=== PATIENT | female | born 1955 | race Hispanic/Latino ===

== ENCOUNTER → 2024-07-12 | Outpatient (CLI) | payer OTHER, MEDICARE ==
[2024-07-12 13:39] LABS: BASOPHILS # (AUTO) 0.06 K/uL (0.00-0.20); BASOPHILS % (AUTO) 0.9 % (0.0-5.0); EOSINOPHILS # (AUTO) 0.11 K/uL (0.00-0.70); EOSINOPHILS % (AUTO) 1.6 % (0.0-8.0); HEMATOCRIT 37.4 % (36-48); IMMATURE GRANULOCYTE ABSOLUTE 0.01 K/uL (0-1); LYMPHOCYTES # (AUTO) 2.9 K/uL (1.0-4.8); MEAN CORPUSCULAR HEMOGLOBIN 31.2 pg (27.0-33.0); MEAN CORPUSCULAR HGB CONC 34.5 g/dL (32.0-36.0); MEAN CORPUSCULAR VOLUME 90.3 fL (79-99); MONOCYTES # (AUTO) 0.7 K/uL (0.1-1.0); MONOCYTES % (AUTO) 10.5 % (3.0-13.0); NEUTROPHILS % (AUTO) 43.9 % (40.0-77.0); PLATELET COUNT (AUTO) 280 K/uL (130-400); RED BLOOD CELL COUNT(AUTO) 4.14 MIL/uL (4.00-5.50); RED CELL DISTRIBUTION WIDTH 14.4 % (11.0-15.5); WHITE BLOOD COUNT (AUTO) 6.8 K/uL (4.8-10.8)
[2024-07-12 13:52] LABS: INR 0.99 (0.85-1.15); PROTHROMBIN TIME 10.7 SEC (9.6-11.6)
[2024-07-12 13:54] LABS: ALBUMIN 3.9 g/dL (3.5-5.0); BILIRUBIN,TOTAL 0.7 mg/dL (0.2-1.0); CREATININE 0.7 mg/dL (0.5-1.0); POTASSIUM 3.3 mmol/L (3.5-5.1); TOTAL PROTEIN, SERUM 7.2 g/dL (6.0-8.3)
== END | disposition home or self-care (01) ==
LOC: LAB 13:17
PROVIDERS: ATTEND Internal Medicine Gastroenterology
DX: R94.5 Abnormal results of liver function studies (principal); R93.2 Abnormal findings on diagnostic imaging of liver and biliary tract; Z79.899 Other long term (current) drug therapy
CPT/HCPCS: 36415; 80053; 82977; 85025; 85610

== ENCOUNTER 2024-07-18 06:55 | Day surgery (SDC) | payer OTHER, MEDICARE ==
[2024-07-18] VITALS (11 sets, daily range): BP systolic 117–153; BP diastolic 57–77; PULSE 52–73; RESP 12–16; TEMP 96.6–97.4
[~2024-07-18] VITALS: Ht 152.4 cm; Wt 60.3 kg
[2024-07-18] MEDS ORDERED: OMEP40CA21 PO (09:20)
[2024-07-18] MEDS ORDERED: MONT-39 PO (09:20)
[2024-07-18] MEDS ORDERED: ALEN70TA80 PO (09:20)
[2024-07-18] MEDS ORDERED: CETI-89 PO (09:20)
[2024-07-18] MEDS ORDERED: FLUT1AER IH (09:20)
[2024-07-18] MEDS ORDERED: ROSU5TAB43 PO (09:20)
[2024-07-18] MEDS: 0.9%NACL 1000ML 1,000 ML IV ONE (09:28)
[2024-07-18] MEDS ORDERED: proPOFol 10 MG/ML 20ML VIAL IV ONE ×2 (10:17)
[2024-07-18 11:41] LABS: ALBUMIN 3.7 g/dL (3.5-5.0); BILIRUBIN,DIRECT 0.2 mg/dL (0.0-0.3); BILIRUBIN,TOTAL 0.6 mg/dL (0.2-1.0); TOTAL PROTEIN, SERUM 6.8 g/dL (6.0-8.3)
== END 2024-07-18 12:00 | disposition home or self-care (01) ==
LOC: ENDO 06:55 → DAH 06:55 → ENDO 12:00
PROVIDERS: ATTEND Internal Medicine Gastroenterology
DX: R93.2 Abnormal findings on diagnostic imaging of liver and biliary tract (principal); R94.5 Abnormal results of liver function studies; R93.5 Abnormal findings on diagnostic imaging of other abdominal regions, including retroperitoneum; K57.10 Diverticulosis of small intestine without perforation or abscess without bleeding; R74.8 Abnormal levels of other serum enzymes; K83.8 Other specified diseases of biliary tract; K21.9 Gastro-esophageal reflux disease without esophagitis; M19.90 Unspecified osteoarthritis, unspecified site; E78.00 Pure hypercholesterolemia, unspecified; E66.9 Obesity, unspecified; M81.0 Age-related osteoporosis without current pathological fracture; K59.00 Constipation, unspecified; K57.30 Diverticulosis of large intestine without perforation or abscess without bleeding; Z90.710 Acquired absence of both cervix and uterus; Z79.899 Other long term (current) drug therapy; Z98.890 Other specified postprocedural states; Z98.891 History of uterine scar from previous surgery; Z90.49 Acquired absence of other specified parts of digestive tract
CPT/HCPCS: 43237; 82977; 80076; 83690; 36415; J7030; J2704 ×2; A4620; A4215 ×2; A4223; A4222; A4221; A4663; A4606; J3490